=== PATIENT | female | born 1995 | race Caucasian/White ===

== ENCOUNTER → 2019-11-26 | Outpatient (CLI) | payer OTHER ==
--- NOTE | 2019-11-26 08:18 | REP ---
Obstetric sonography: History: Supervision of . Findings: Transabdominal scanning confirms the presence of a single living intrauterine gestation. Lehigh-rump length of the embryonic pole is 15 mm. This corresponds with a gestational age estimate of 7 weeks 5 days. heart rate is recorded at 155 beats per minute. No subchorionic hemorrhage is seen. No significant extrauterine abnormality. Impression: Viable single intrauterine gestation at 7 weeks 5 days by crown-rump length. FINA by sonography July 09, 2020. Electronically Signed by Brayan Hill MD 11/26/2019 10:57 A
== END ==
LOC: M RAD 06:39
PROVIDERS: ATTEND Physician Assistant
DX: Z34.01 Encounter for supervision of normal first pregnancy, first trimester (principal); Z3A.01 Less than 8 weeks gestation of pregnancy

== ENCOUNTER 2020-04-18 09:22 | Inpatient (IN) | payer OTHER ==
[~2020-04-18] VITALS: Ht 170.2 cm; Wt 71.9 kg
[2020-04-18] MEDS ORDERED: NS 1,000 ML IV ONE (09:45)
[2020-04-18] MEDS ORDERED: ISOVUE-370 76% 100ML VIAL As Ordered ONE (09:50)
[2020-04-18 10:13] LABS: BASO % 0.2 % (0.0-1.0); EOS % 0.1 % (0.0-3.0); HEMATOCRIT 27.8 % (36.0-47.0); HEMOGLOBIN 8.2 g/dl (12.0-15.5); LYMPH # 1.5 10^3/uL (1.5-5.0); LYMPH % 13.4 % (24.0-44.0); MEAN CORPUSCULAR HGB CONC 29.5 g/dl (32.0-36.5); MEAN CORPUSCULAR VOLUME 67.6 fl (80.0-96.0); MONO # 0.9 10^3/uL (0.0-0.8); NEUTROPHILS # 8.5 10^3/uL (1.5-8.5); NEUTROPHILS % 77.9 % (36.0-66.0); PLATELET COUNT, AUTOMATED 419 10^3/uL (150-450); RED BLOOD COUNT 4.11 10^6/uL (4.00-5.40); WHITE BLOOD COUNT 10.9 10^3/uL (4.0-10.0)
[2020-04-18 10:46] LABS: ALBUMIN 4.1 GM/DL (3.2-5.2); ALT/SGPT 26 U/L (12-78); BILIRUBIN,DIRECT 0.2 MG/DL (0.0-0.2); BILIRUBIN,TOTAL 0.6 MG/DL (0.2-1.0); CK-MB VALUE MASS 4.2 NG/ML (<3.6); CPK CREATINE PHOSPHOKINASE 288 U/L (26-192); LIPASE 72 U/L (73-393); MB/CK RELATIVE INDEX 1.46 (< OR =4); TOTAL PROTEIN 7.7 GM/DL (6.4-8.2); TROPONIN I < 0.02 NG/ML (< 0.10)
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
--- NOTE | 2020-04-18 11:06 | REP ---
CT CHEST WITH IV CONTRAST: TECHNIQUE: Axial contrast-enhanced images from the thoracic inlet to the upper abdomen using 100 mL Isovue-370 intravenous contrast material with multiplanar reformations. There is a very small right pneumothorax. There is a fracture of the right 1st rib. No other fracture seen of the visualized osseous structures. Lungs are otherwise clear. There is no pleural or pericardial effusion. There is no mediastinal, hilar, or chest wall lymphadenopathy. Normal thymic tissue is seen in the anterior mediastinum. There appears to be a small amount of fluid in the adjacent pericardial recess. Thoracic aorta is intact with no pseudoaneurysm. IMPRESSION: Very small right pneumothorax. Fracture right 1st rib. No other fracture of the visualized osseous structures. Thoracic aorta is intact. No pleural effusion. Electronically Signed by Desean Landa MD 04/22/2020 06:25 P
--- NOTE | 2020-04-18 11:18 | REP ---
CHEST: REASON: Trauma. COMPARISON: No priors. The technique utilized in obtaining the radiograph has magnified the cardiac silhouette and accentuated the interstitial markings. FINDINGS: The superior mediastinal structures are midline. The cardiac silhouette is unremarkable in size, shape, and position. The diaphragmatic surfaces of the lungs are regular, and the costophrenic angles are clear. The pulmonary ramos are clear. The imaged osseous structures are intact. IMPRESSION: There is no acute cardiopulmonary disease. Electronically Signed by Azeem Vidales DO 04/18/2020 02:46 P
--- NOTE | 2020-04-18 11:18 | REP ---
CT ABDOMEN AND PELVIS WITH IV CONTRAST: Liver, spleen, adrenals, pancreas and kidneys are normal in appearance. There is no adenopathy. There is no free air or free fluid. The abdominal aorta is normal in caliber and intact. No bowel wall thickening is seen. The appendix is normal. No pelvic mass is seen. Urinary bladder is mildly distended and grossly unremarkable. Visualized osseous structures are intact with no fracture. IMPRESSION: Negative abdomen and pelvis with no acute abnormality is identified. Electronically Signed by Desean Landa MD 04/22/2020 06:27 P
--- NOTE | 2020-04-18 11:21 | REP ---
LEFT FOOT, FOUR VIEWS: Four views, left foot performed. There is a nondisplaced fracture of the head of the 2nd metatarsal. I see no other evidence of acute fracture, dislocation, or intrinsic bone disease. There appears to be an old avulsion fracture of the lateral malleolus. There is an accessory ossicle adjacent to the navicular bone. IMPRESSION: Nondisplaced fracture head of 2nd metatarsal. Electronically Signed by Desean Landa MD 04/22/2020 06:27 P
[2020-04-18] MEDS ORDERED: MOM 30ML SUSPENSION UDC PO PRN (12:15)
[2020-04-18] MEDS ORDERED: MAALOX 30 ML SUSP *UDC PO PRN (12:15)
[2020-04-18] MEDS ORDERED: traMADol ER 100MG TABLET (ULTRAM ER) PO PRN (12:15)
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
[2020-04-18 12:27] LABS: AMPHETAMINES LEVEL URINE NEGATIVE (NEGATIVE); BARBITURATES URINE NEGATIVE (NEGATIVE); BENZODIAZEPINES URINE NEGATIVE (NEGATIVE); CANNABINOIDS URINE NEGATIVE (NEGATIVE); COCAINE METABOLITE URINE NEGATIVE (NEGATIVE); METHADONE URINE NEGATIVE (NEGATIVE); OPIATES URINE NEGATIVE (NEGATIVE); PHENCYCLIDINE URINE NEGATIVE (NEGATIVE)
[2020-04-18 12:40] LABS: ACETAMINOPHEN LEVEL < 2.0 UG/ML (10.0-30.0); SALICYLATE LEVEL < 1.7 MG/DL (5.0-30.0)
[2020-04-18] MEDS: ACETAMINOPHEN TAB 650MG DOSE (2X325MG) PO SCH ×3 (13:00→21:00)
[2020-04-18 13:11] LABS: FERRITIN 3 NG/ML (8-252); IRON (FE) 12 UG/DL (50-170); PERCENT SATURATION 2.1 % (13.2-45.0); TOTAL IRON BINDING CAPACITY 571 UG/DL (250-450)
[2020-04-18 13:15] VITALS: BP 124/70
[2020-04-18 13:18] LABS: FOLATE 6.7 NG/ML (>5.4); VITAMIN B12 LEVEL 726 PG/ML (247-911)
[2020-04-18 13:44] LABS: HEMATOCRIT 27.1 % (36.0-47.0)
[2020-04-18] MEDS: NS 1,000 ML IV SCH ×2 (14:09→22:30)
[2020-04-18] MEDS: IBUPROFEN 600MG TAB PO SCH ×2 (14:12→22:00)
--- NOTE | 2020-04-18 15:58 | ECGEPIP ---
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
[2020-04-18] MEDS ORDERED: ENOXAPARIN 40MG/0.4ML SYRINGE (J1650 PER 10MG) SC SCH (21:00)
[2020-04-18 22:00] VITALS: BP 119/67
[2020-04-19] MEDS: ACETAMINOPHEN TAB 650MG DOSE (2X325MG) PO SCH ×6 (01:00→20:28)
[2020-04-19 06:00] VITALS: BP 141/76
[2020-04-19] MEDS: IBUPROFEN 600MG TAB PO SCH ×3 (06:00→22:00)
[2020-04-19] MEDS: NS 1,000 ML IV SCH (06:21)
[2020-04-19 07:07] LABS: HEMATOCRIT 23.7 % (36.0-47.0); MEAN CORPUSCULAR HEMOGLOBIN 19.9 pg (27.0-33.0); MEAN CORPUSCULAR HGB CONC 29.1 g/dl (32.0-36.5); MEAN CORPUSCULAR VOLUME 68.5 fl (80.0-96.0); RED BLOOD COUNT 3.46 10^6/uL (4.00-5.40); WHITE BLOOD COUNT 5.4 10^3/uL (4.0-10.0)
[2020-04-19 07:12] LABS: HEMOGLOBIN 6.9 g/dl (12.0-15.5); PLATELET COUNT, AUTOMATED 311 10^3/uL (150-450)
[2020-04-19 07:28] LABS: BLOOD UREA NITROGEN 5 MG/DL (7-18); CALCIUM LEVEL 7.6 MG/DL (8.5-10.1); CARBON DIOXIDE LEVEL 24 MEQ/L (21-32); CHLORIDE LEVEL 114 MEQ/L (98-107); CPK CREATINE PHOSPHOKINASE 259 U/L (26-192); CREATININE FOR GFR 0.56 MG/DL (0.55-1.30); GLOMERULAR FILTRATION RATE > 60.0 (>60); GLUCOSE, FASTING 82 MG/DL (70-100); POTASSIUM SERUM 3.7 MEQ/L (3.5-5.1); SODIUM LEVEL 144 MEQ/L (136-145)
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
[2020-04-19 10:00] VITALS: BP 110/65
[2020-04-19 10:05] LABS: HEMATOCRIT 25.2 % (36.0-47.0); HEMOGLOBIN 7.2 g/dl (12.0-15.5)
--- NOTE | 2020-04-19 12:26 | IPNPDOC ---
Subjective Date Seen The patient was seen on 04/19/20. Subjective Chief Complaint/HPI Patient offers no new complaints at the present time. No shortness of breath General: Denies: ROS Unobtainable, Chills, Night Sweats, Fatigue, Malaise, Normal Appetite, Other Symptoms Constitutional: Denies: Chills, Fever, Malaise, Night Sweats, Weakness, Fatigue, Weight Loss, Lethargy, Other Eyes: Denies: Pain, Vision change, Conjunctivae inflammation, Eyelid inflammation, Redness, Other ENT: Denies: Head Aches, Ear Pain, Dysphagia, Sinus Congestion, Post Nasal Drip, Sore Throat, Epistaxis, Other Symptoms Skin: Denies: Rash, Lesions, Jaundice, Bruising, Itching, Dry, Breakdown, Nail Changes, Other Pulmonary: Denies: Dyspnea, Cough, Pleuritic Chest Pain, Other Symptoms Cardiovascular: Denies: Chest Pain, Palpitations, Orthopnea, Paroxysmal Noc. Dyspnea, Edema, Lt Headedness, Other Symptoms Gastrointestinal: Denies: Nausea, Vomiting, Abdominal Pain, Diarrhea, Constipation, Melena, Hematochezia, Other Symptoms Genitourinary: Denies: Dysuria, Frequency, Incontinence, Hematuria, Retention, Other Symptoms Hematologic: Denies: Bruising, Bleeding Excessively, Petecchia, Purpura, Enlarged Lymph Nodes, Other Hematologic Endocrine: Denies: Polydipsia, Polyphagia, Polyuria, Heat Intolerance, Cold Intolerance, Other Endocrine Sx Musculoskeletal: Denies: Neck Pain, Back Pain, Shoulder Pain, Arm Pain, Hand Pain, Leg Pain, Foot Pain, Joint Pain, Muscle Pain, Spasms, Other Symptoms Neurological: Denies: Weakness, Numbness, Incoordination, Change in speech, Confusion, Seizures, Other Symptoms Objective Physical Examination General Exam: Positive: Alert, Cooperative Eye Exam: Positive: PERRLA, Conjunctiva & lids normal ENT Exam: Positive: Atraumatic Neck Exam: Positive: Supple Chest Exam: Positive: Clear to auscultation, Normal air movement Heart Exam: Positive: Rate Normal, Normal S1, Normal S2 Abdomen Exam: Positive: Normal bowel sounds Extremity Exam: Positive: Normal pulses Skin Exam: Positive: Nl turgor and temperature, Breakdown Neuro Exam: Positive: Strength at 5/5 X4 ext, Sensation Intact, Cranial Nerves 3-12 NL Psych Exam: Positive: Mood NL, Oriented x 3 Assessment /Plan Problems (1) Suicide attempt Status: Acute Problem Text: Patient is clinically stable Will request inpatient mental health unit consult. Once she is medically clear, hopefully tomorrow Continue present care (2) Rib fracture Status: Acute Problem Text: Surgical consultation noted and appreciated Pain management as per orders (3) Pneumothorax Status: Acute Problem Text: Stable pneumothorax No need for chest tube placement as per surgical consult Repeat chest x-ray tonight and tomorrow morning If no increase in the pneumothorax and patient will be clear for discharge (4) Anemia Status: Chronic Problem Text: According to patient, she has a chronic anemia Her repeat hemoglobin 7.2, hematocrit 23.2 Will order CBC, CMP, and the iron deficiency workup tomorrow Will add ferrous sulfate 325 mg by mouth twice a day (5) Foot fracture Status: Acute Problem Text: IMAGING STUDIES: Foot x-ray shows nondisplaced fracture head of second metatarsal on the left. Orthopedic consult was called last night, awaiting official report Plan/VTE VTE Prophylaxis Ordered?: Yes VS, I&O, [facility] Vital Signs/I&O Vital Signs Date Time Temp Pulse Resp B/P (MAP) Pulse Ox O2 Delivery O2 Flow Rate FiO2 04/19/20 10:00 99.2 61 20 110/65 (80) 100 Room Air I&O- Last 24 Hours up to 6 AM 04/19/20 05:59 Intake Total 1440 ml Output Total 775 ml Balance 665 ml Laboratory Data 24H LABS Laboratory Tests 2 04/18/20 13:33: Vitamin B12 Level 639 04/19/20 06:45: Nucleated Red Blood Cells % (auto) 0.0, Anion Gap 6L, Glomerular Filtration Rate > 60.0, Calcium Level 7.6L, Total Creatine Kinase 259H CBC/BMP Laboratory Tests 04/18/20 13:33 04/19/20 06:45 04/19/20 09:52 MATT SMITH MD Apr 19, 2020 12:26
[2020-04-19 12:40] LABS: MAGNESIUM LEVEL 1.9 MG/DL (1.8-2.4)
[2020-04-19 14:00] VITALS: BP 114/64
--- NOTE | 2020-04-19 16:15 | REP ---
There to single view of chest studies available currently for dictation: 04/19/2020. Indication: Pneumothorax. Comparison: Chest x-ray dated 04/18/[address] as chest CT dated 04/18/2020. Findings: The small right apical pneumothorax is not appreciated on these plain films. There is no pleural effusion. The lungs are clear. Cardiac silhouette is normal. Impression: No significant residual pneumothorax within the right apex appreciated. Electronically Signed by Dexter Kaiser DO 04/19/2020 04:06 P
[2020-04-19] MEDS: FERROUS SULFATE 325MG TAB PO SCH (20:28)
[2020-04-19 22:00] VITALS: BP 118/87
[2020-04-20] VITALS (10 sets, daily range): BP systolic 106–120; BP diastolic 57–67
[2020-04-20] MEDS: ACETAMINOPHEN TAB 650MG DOSE (2X325MG) PO SCH ×6 (01:00→21:45)
[2020-04-20] MEDS: IBUPROFEN 600MG TAB PO SCH ×3 (06:00→21:44)
[2020-04-20 07:01] LABS: BASO % 0.3 % (0.0-1.0); EOS # 0.1 10^3/uL (0.0-0.5); EOS % 1.6 % (0.0-3.0); HEMATOCRIT 24.2 % (36.0-47.0); LYMPH # 2.5 10^3/uL (1.5-5.0); LYMPH % 43.1 % (24.0-44.0); MEAN CORPUSCULAR HEMOGLOBIN 19.7 pg (27.0-33.0); MEAN CORPUSCULAR HGB CONC 28.9 g/dl (32.0-36.5); MEAN CORPUSCULAR VOLUME 68.2 fl (80.0-96.0); MONO # 0.5 10^3/uL (0.0-0.8); MONO % 8.3 % (0.0-5.0); NEUTROPHILS # 2.7 10^3/uL (1.5-8.5); NEUTROPHILS % 46.4 % (36.0-66.0); PLATELET COUNT, AUTOMATED 350 10^3/uL (150-450); RED BLOOD COUNT 3.55 10^6/uL (4.00-5.40); WHITE BLOOD COUNT 5.8 10^3/uL (4.0-10.0)
[2020-04-20 07:41] LABS: ALBUMIN 3.2 GM/DL (3.2-5.2); ALT/SGPT 17 U/L (12-78); BILIRUBIN,TOTAL 0.6 MG/DL (0.2-1.0); BLOOD UREA NITROGEN 4 MG/DL (7-18); CARBON DIOXIDE LEVEL 25 MEQ/L (21-32); CHLORIDE LEVEL 112 MEQ/L (98-107); CREATININE FOR GFR 0.61 MG/DL (0.55-1.30); FERRITIN 6 NG/ML (8-252); GLOMERULAR FILTRATION RATE > 60.0 (>60); GLUCOSE, FASTING 79 MG/DL (70-100); IRON (FE) 12 UG/DL (50-170); PERCENT SATURATION 2.8 % (13.2-45.0); POTASSIUM SERUM 3.7 MEQ/L (3.5-5.1); SODIUM LEVEL 145 MEQ/L (136-145); T UPTAKE 31 % (30-39); THYROXINE (T4) 6.5 UG/DL (4.5-12.0); TOTAL IRON BINDING CAPACITY 428 UG/DL (250-450); TOTAL PROTEIN 6.2 GM/DL (6.4-8.2)
[2020-04-20] MEDS: FERROUS SULFATE 325MG TAB PO SCH ×2 (08:24→21:44)
--- NOTE | 2020-04-20 10:12 | IPNPDOC ---
Subjective Date Seen The patient was seen on 04/20/20. Subjective Chief Complaint/HPI According to patient, she had a large amount of vaginal bleeding secondary to menses, but offers no complains of a abdominal pain, nausea, vomiting, etc. General: Denies: ROS Unobtainable, Chills, Night Sweats, Fatigue, Malaise, Normal Appetite, Other Symptoms Constitutional: Denies: Chills, Fever, Malaise, Night Sweats, Weakness, Fatigue, Weight Loss, Lethargy, Other Pulmonary: Denies: Dyspnea, Cough, Pleuritic Chest Pain, Other Symptoms Cardiovascular: Denies: Chest Pain, Palpitations, Orthopnea, Paroxysmal Noc. Dyspnea, Edema, Lt Headedness, Other Symptoms Gastrointestinal: Denies: Nausea, Vomiting, Abdominal Pain, Diarrhea, Constipation, Melena, Hematochezia, Other Symptoms Musculoskeletal: Denies: Neck Pain, Back Pain, Shoulder Pain, Arm Pain, Hand Pain, Leg Pain, Foot Pain, Joint Pain, Muscle Pain, Spasms, Other Symptoms Neurological: Denies: Weakness, Numbness, Incoordination, Change in speech, Confusion, Seizures, Other Symptoms Objective Physical Examination General Exam: Positive: Alert, Cooperative Neck Exam: Positive: Supple Chest Exam: Positive: Clear to auscultation, Normal air movement Heart Exam: Positive: Rate Normal, Normal S1, Normal S2 Abdomen Exam: Positive: Normal bowel sounds Extremity Exam: Positive: Normal pulses Skin Exam: Positive: Nl turgor and temperature, Breakdown Assessment /Plan Problems (1) Suicide attempt Status: Acute Problem Text: Patient is clinically stable Will request inpatient mental health unit consult. Once she is medically clear, hopefully tomorrow Continue present care (2) Rib fracture Status: Acute Problem Text: Surgical consultation noted and appreciated Pain management as per orders (3) Pneumothorax Status: Acute Problem Text: Stable pneumothorax No need for chest tube placement as per surgical consult Repeat chest x-ray does not show any residual pneumothorax (4) Anemia Status: Chronic Problem Text: Patient seemed to have a chronic severe anemia of unknown etiology Her hemoglobin still remains low, her hemoglobin today is 7, a hematocrit 24.2 I will transfuse her -2 units of PRBC to elevate her hemoglobin level which will help with her physical functioning and improve her symptoms are tiredness and fatigue Further anemia workup including iron studies, and electrophoresis has been ordered In the meantime, patient has been started on iron and supplemented along with vitamin C and folic acid supplements If patient is clinically stable. I will call psychiatry tomorrow and get a possibly transfer to inpatient mental health unit (5) Foot fracture Status: Acute Problem Text: IMAGING STUDIES: Foot x-ray shows nondisplaced fracture head of second metatarsal on the left. Patient was seen by orthopedic no surgical intervention recommended and has been asked to follow-up as an outpatient We'll try to arrange a podiatry boot before she is discharged to inpatient mental health unit Plan/VTE VTE Prophylaxis Ordered?: Yes VS, I&O, 24H, Fishbone Vital Signs/I&O Vital Signs Date Time Temp Pulse Resp B/P (MAP) Pulse Ox O2 Delivery O2 Flow Rate FiO2 04/20/20 06:00 98.5 60 18 112/57 (75) 100 Room Air I&O- Last 24 Hours up to 6 AM 04/20/20 05:59 Intake Total 1440 ml Output Total 1500 ml Balance -60 ml Laboratory Data 24H LABS Laboratory Tests 2 04/20/20 06:17: Immature Granulocyte % (Auto) 0.3, Neutrophils (%) (Auto) 46.4, Lymphocytes (%) (Auto) 43.1, Monocytes (%) (Auto) 8.3H, Eosinophils (%) (Auto) 1.6, Basophils (%) (Auto) 0.3, Neutrophils # (Auto) 2.7, Lymphocytes # (Auto) 2.5, Monocytes # (Auto) 0.5, Eosinophils # (Auto) 0.1, Basophils # (Auto) 0.0, Nucleated Red Blood Cells % (auto) 0.0, Anion Gap 8, Glomerular Filtration Rate > 60.0, Calcium Level 8.0L, Iron Level 12L, Total Iron Binding Capacity 428, Transferrin % Saturation 2.8L, Ferritin 6L, Total Bilirubin 0.6, Aspartate Amino Transf (AST/SGOT) 15, Alanine Aminotransferase (ALT/SGPT) 17, Alkaline Phosphatase 49, Total Protein 6.2L, Albumin 3.2#, Albumin/Globulin Ratio 1.1L, Thyroid Stimulating Hormone (TSH) 2.030, Free Thyroxine Index 2.0, Thyroxine (T4) 6.5, Triiodothyronine (T3) Uptake 31 CBC/BMP Laboratory Tests 04/20/20 06:17 MATT SMITH MD Apr 20, 2020:12
[2020-04-20] MEDS: FOLIC ACID 1 MG TAB PO SCH (10:30)
[2020-04-20] MEDS: ASCORBIC ACID 500 MG TAB PO SCH ×2 (10:30→21:44)
[2020-04-21] MEDS: ACETAMINOPHEN TAB 650MG DOSE (2X325MG) PO SCH ×6 (01:00→21:20)
[2020-04-21 05:30] VITALS: BP 118/65
[2020-04-21] MEDS: IBUPROFEN 600MG TAB PO SCH ×3 (05:45→21:21)
[2020-04-21 06:22] LABS: BASO % 0.3 % (0.0-1.0); EOS # 0.1 10^3/uL (0.0-0.5); EOS % 1.5 % (0.0-3.0); HEMATOCRIT 31.7 % (36.0-47.0); LYMPH % 49.4 % (24.0-44.0); MEAN CORPUSCULAR HEMOGLOBIN 21.4 pg (27.0-33.0); MEAN CORPUSCULAR VOLUME 71.4 fl (80.0-96.0); MONO # 0.5 10^3/uL (0.0-0.8); MONO % 7.3 % (0.0-5.0); NEUTROPHILS # 2.5 10^3/uL (1.5-8.5); NEUTROPHILS % 41.3 % (36.0-66.0); PLATELET COUNT, AUTOMATED 350 10^3/uL (150-450); RED BLOOD COUNT 4.44 10^6/uL (4.00-5.40); WHITE BLOOD COUNT 6.2 10^3/uL (4.0-10.0)
[2020-04-21 06:29] LABS: HEMOGLOBIN 9.5 g/dl (12.0-15.5)
[2020-04-21 06:50] LABS: ALBUMIN 3.5 GM/DL (3.2-5.2); ALT/SGPT 20 U/L (12-78); BILIRUBIN,TOTAL 1.1 MG/DL (0.2-1.0); BLOOD UREA NITROGEN 5 MG/DL (7-18); CALCIUM LEVEL 8.8 MG/DL (8.5-10.1); CARBON DIOXIDE LEVEL 26 MEQ/L (21-32); CHLORIDE LEVEL 110 MEQ/L (98-107); CREATININE FOR GFR 0.66 MG/DL (0.55-1.30); GLOMERULAR FILTRATION RATE > 60.0 (>60); GLUCOSE, FASTING 81 MG/DL (70-100); POTASSIUM SERUM 3.6 MEQ/L (3.5-5.1); SODIUM LEVEL 144 MEQ/L (136-145); TOTAL PROTEIN 6.9 GM/DL (6.4-8.2)
--- NOTE | 2020-04-21 09:12 | CR ---
DATE OF CONSULTATION: 04/19/2020 INDICATION: Left metatarsal fracture. HISTORY OF PRESENT ILLNESS: Citlali is a pleasant 24-year-old female that apparently attempted suicide jumping out of a third story apartment building. Her only orthopedic injury was a displaced left second metatarsal head fracture. She was admitted to the hospitalist service with modified trauma protocol and a plan of going over to the mental health unit once medically cleared. The patient is reporting mild pain in her left foot. It is 4/10 on the pain scale. Described as throbbing. Improved with elevation and made worse with any attempt at weightbearing. She denies numbness or tingling in her left foot. She has already been provided with a postoperative shoe. For the patient's full past medical history, past surgical history, medications, allergies, social history and review of systems, please see admitting history and physical, which I have personally reviewed. PHYSICAL EXAMINATION: Reveals well-appearing female in no distress. She is alert and oriented x3. Neurologic: Appropriate mood and affect. She answers questions appropriately. We did not get into any questions about suicidal ideation. Pulmonary: Nonlabored breathing. Cardiovascular: 2+ dorsalis pedis (DP) pulse. Abdomen is non distended. Musculoskeletal: There is mild swelling in the left midfoot and forefoot. No significant bruising. Her ankle and calcaneus are nontender. She essentially has fairly estimated tenderness to the second MTP joint. TMT joints are nontender. She can fire EHL and FHL. Sensation light touch is grossly intact. X-rays of the left foot, three views, were obtained in the ER and available for my review. There is a very mildly displaced fracture of the second metatarsal head. No widening at the Lisfranc joint. ASSESSMENT/PLAN: Citlali has a mildly displaced left second metatarsal head fracture. I recommend heel weightbearing in this postoperative shoe. I do recommend she be transitioned to a full on short walking boot when able. I stressed the importance of not weightbearing through the mid and forefoot and she cannot properly execute heel weightbearing and she will have to be non weightbearing until she gets the boot. She should be very well with this unless she is putting weight on it or falls. Then there could be a shift at the fracture site which could change this to a surgical condition. I carefully explained that to her and she understands. I recommend she take vitamin D 2000 units daily for 2 months. At this point, we would be happy to see her at the orthopedic clinic in a week. 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 All of her questions were answered. She agrees with the plan.
[2020-04-21] MEDS: FOLIC ACID 1 MG TAB PO SCH (09:38)
[2020-04-21] MEDS: FERROUS SULFATE 325MG TAB PO SCH ×2 (09:39→21:21)
[2020-04-21] MEDS: ASCORBIC ACID 500 MG TAB PO SCH ×2 (09:39→21:21)
--- NOTE | 2020-04-21 10:28 | MHCRPDOC ---
[facility] Consultation Consultation DATE OF CONSULTATION: 04/21/20 patient seen, audio quality poor, patient jumped out window (reports she fell during arugment) concerns warrant further evaluation to determine if any MH problems at play, admit to critical access hospital Vital Signs Vital Signs Date Time Temp Pulse Resp B/P (MAP) Pulse Ox O2 Delivery O2 Flow Rate FiO2 04/21/20 05:30 98.1 51 16 118/65 (82) 99 Room Air Laboratory Data 24H Labs Laboratory Tests 2 04/21/20 06:11: Immature Granulocyte % (Auto) 0.2, Neutrophils (%) (Auto) 41.3, Lymphocytes (%) (Auto) 49.4H, Monocytes (%) (Auto) 7.3H, Eosinophils (%) (Auto) 1.5, Basophils ( %) (Auto) 0.3, Neutrophils # (Auto) 2.5, Lymphocytes # (Auto) 3.0, Monocytes # (Auto) 0.5, Eosinophils # (Auto) 0.1, Basophils # (Auto) 0.0, Nucleated Red Blood Cells % (auto) 0.0, Anion Gap 8, Glomerular Filtration Rate > 60.0, Calcium Level 8.8, Total Bilirubin 1.1#H, Aspartate Amino Transf (AST/SGOT) 15, Alanine Aminotransferase (ALT/SGPT) 20, Alkaline Phosphatase 54, Total Protein 6.9, Albumin 3.5, Albumin/Globulin Ratio 1.0L Home Medications Current Medications Current Medications Medications (Trade) Dose Ordered Sig/Chaitanya Route PRN Reason Start Time Stop Time Status Last Admin Dose Admin Acetaminophen (Tylenol Tab) 650 mg Q4H PO 04/18/20 13:00 04/21/20 09:39 Al Hydrox/Mg Hydrox/Simethicone (Mylanta) 30 ml DAILY PRN PO DYSPEPSIA 04/18/20 12:15 Ascorbic Acid (Vitamin C) 500 mg BID PO 04/20/20 09:00 04/21/20 09:39 Enoxaparin Sodium (Lovenox) 40 mg DAILY@2100 SC 04/18/20 21:00 04/18/20 12:24 DC Ferrous Sulfate (Ferrous Sulfate) 325 mg BID PO 04/19/20 21:00 04/21/20 09:39 Folic Acid (Folic Acid) 1 mg DAILY PO 04/20/20 09:00 04/21/20 09:38 Home Med (Med Rec Complete!) ASDIRECTED XX 04/18/20 12:00 04/18/20 11:48 DC Ibuprofen (Advil) 600 mg Q8H PO 04/18/20 14:00 04/21/20 05:45 Magnesium Hydroxide (Milk Of Magnesia) 30 ml DAILY PRN PO CONSTIPATION 04/18/20 12:15 Sodium Chloride 1,000 ml @ 100 mls/hr Q10H IV 04/18/20 12:30 04/19/20 09:34 DC 04/19/20 06:21 Tramadol HCl (Ultram Er) 200 mg DAILY PRN PO break through pain 04/18/20 12:15 Scheduled Acetaminophen (Acetaminophen) 325 Mg Tablet, 650 MG PO Q4H Ascorbic Acid (Vitamin C) 500 Mg Tablet, 500 MG PO BID Disulfiram (Disulfiram) 250 Mg Tablet, 1 TAB PO DAILY for alcohol Ferrous Sulfate (Ferrous Sulfate) 325 Mg Tablet, 325 MG PO BID Folic Acid (Folic Acid) 1 Mg Tablet, 1 MG PO DAILY Ibuprofen (Ibuprofen) 600 Mg Tablet, 600 MG PO Q8H Scheduled PRN Aluminum/Magnesium/Simeth (Mag-Al Plus Suspension) 30 Ml Oral.susp, 30 ML PO DAILY PRN for DYSPEPSIA Magnesium Hydroxide (Milk of Magnesia) 400 Mg/5 Ml Oral.susp, 30 ML PO DAILY PRN for CONSTIPATION Allergies Coded Allergies: No Known Allergies (Unverified , 04/18/20) AKANKSHA TENORIO DO Apr 21, 2020 10:28
--- NOTE | 2020-04-21 11:27 | DS.PDOC ---
Discharge Summary General Date of Admission Apr 18, 2020 at 12:03 Date of Discharge 04/21/20 Discharge Summary PROCEDURES PERFORMED DURING STAY: None. ADMITTING DIAGNOSES: 1. Suicidal attempt, foot fracture. DISCHARGE DIAGNOSES: 1. Suicidal attempt, pneumothorax, foot fracture, significant chronic anemia of unknown etiology. COMPLICATIONS/CHIEF COMPLAINT: Foot Fracture. 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 Later on, the ER doctor went back with a social media editor to talk to the patient again and she admitted to jumping out of her window after having an argument with her boyfriend. As a result of the fall she sustained injuries to her chest, resulting in a rib fracture and small pneumothorax. She also developed a left second metatarsal nondisplaced fracture. Both Drs. Larson and Justyna have been consulted.. HOSPITAL COURSE: (1) Suicide attempt Patient jumped out of the third floor of building sustaining injuries to her left foot Patient is clinically stable now [facility] consult was requested, once she is accepted, she'll be discharged to inpatient mental health unit today Psychiatric medication and intervention as per his psych (2) Rib fracture Surgical consult was called. No further intervention was recommended When necessary pain management orders with nonnarcotic meds (3) Pneumothorax Patient sustained a very small pneumothorax with rib fracture Which has completely resolved now. We'll repeat chest x-ray does not show any evidence of pneumothorax No further intervention was recommended from orthopedic (4) Anemia: Chronic in nature, of unknown etiology Patient seemed to have a chronic severe anemia of unknown etiology Her hemoglobin still remains low, her hemoglobin today is 7, a hematocrit 24.2 Patient was transfused 2 units of PRBC yesterday with a hemoglobin 9.5, a hematocrit 31.7 today Patient clinically feeling much better and energized after the transfusion and is in good spirits as well Further anemia workup including iron studies, and electrophoresis has been ordered In the meantime, patient has been started on iron and supplemented along with vitamin C and folic acid supplements Once the patient is transferred to inpatient mental health unit, will follow the patient for pending laboratory work (5) Foot fracture IMAGING STUDIES: Foot x-ray shows nondisplaced fracture head of second metatarsal on the left. Patient was seen by orthopedic no surgical intervention recommended and has been asked to follow-up as an outpatient We'll try to arrange a podiatry boot before she is discharged to inpatient mental health unit. DISCHARGE MEDICATIONS: Please see below. ALLERGIES: Please see below. PHYSICAL EXAMINATION ON DISCHARGE: VITAL SIGNS: Please see below. GENERAL: Within normal limits HEENT: PERRLA. Extraocular muscles intact NECK: Supple. Negative JVD, negative lymphadenopathy CARDIOVASCULAR EXAMINATION: S1, S2, regular RESPIRATORY EXAMINATION: Clear to A&P ABDOMINAL EXAMINATION: Benign EXTREMITIES: No clubbing, cyanosis, edema SKIN: Normal NEUROLOGICAL EXAMINATION: . No focal motor sensory deficit PSYCHIATRIC EXAMINATION: Normal LABORATORY DATA: Please see below. IMAGING: Chest x-ray:Impression: No significant residual pneumothorax within the right apex appreciated. PROGNOSIS: Good ACTIVITY: As tolerated. DIET: As tolerated DISCHARGE PLAN: Discharged inpatient mental health unit DISPOSITION: . Discharged to inpatient mental health unit DISCHARGE INSTRUCTIONS: 1. As per discharge instructions. ITEMS TO FOLLOWUP ON ON OUTPATIENT: 1. Follow with psych. DISCHARGE CONDITION: Stable. TIME SPENT ON DISCHARGE: 35 minutes. Vital Signs/I&Os Vital Signs Date Time Temp Pulse Resp B/P (MAP) Pulse Ox O2 Delivery O2 Flow Rate FiO2 04/21/20 05:30 98.1 51 16 118/65 (82) 99 Room Air I&O- Last 24 Hours up to 6 AM 04/21/20 05:59 Intake Total 2070 ml Output Total 400 ml Balance 1670 ml Laboratory Data Labs 24H Laboratory Tests 2 04/21/20 06:11: Immature Granulocyte % (Auto) 0.2, Neutrophils (%) (Auto) 41.3, Lymphocytes (%) (Auto) 49.4H, Monocytes (%) (Auto) 7.3H, Eosinophils (%) (Auto) 1.5, Basophils (%) (Auto) 0.3, Neutrophils # (Auto) 2.5, Lymphocytes # (Auto) 3.0, Monocytes # (Auto) 0.5, Eosinophils # (Auto) 0.1, Basophils # (Auto) 0.0, Nucleated Red Blood Cells % (auto) 0.0, Anion Gap 8, Glomerular Filtration Rate > 60.0, Calcium Level 8.8, Total Bilirubin 1.1#H, Aspartate Amino Transf (AST/SGOT) 15, Alanine Aminotransferase (ALT/SGPT) 20, Alkaline Phosphatase 54, Total Protein 6.9, Albumin 3.5, Albumin/Globulin Ratio 1.0L CBC/BMP Laboratory Tests 04/21/20 06:11 Discharge Medications No Active Prescriptions or Reported Meds Allergies Coded Allergies: No Known Allergies (Unverified , 04/18/20) MATT SMITH MD Apr 21, 2020 11:27
[2020-04-21] MEDS ORDERED: FERR325T18 PO (13:40)
[2020-04-21] MEDS ORDERED: TRAM100T21 PO (13:40)
[2020-04-21] MEDS ORDERED: MYLASSUD PO (13:40)
[2020-04-21] MEDS ORDERED: MOM30SS2 PO (13:40)
[2020-04-21] MEDS ORDERED: ACET1TAB55 PO (13:40)
[2020-04-21] MEDS ORDERED: IBUP-1022 PO (13:40)
[2020-04-21] MEDS ORDERED: ASCO50TA PO (13:40)
[2020-04-21] MEDS ORDERED: FOLI1TAB11 PO (13:40)
[2020-04-21 14:00] VITALS: BP 118/66
[2020-04-21 20:28] VITALS: BP 112/69
[2020-04-22] MEDS: ACETAMINOPHEN TAB 650MG DOSE (2X325MG) PO SCH (01:00)
[2020-04-23] MEDS ORDERED: DISU250T PO (10:26)
[2020-04-23 17:08] LABS: HEMOGLOBIN A 98.1 % (96.4-98.8); HEMOGLOBIN A2 1.9 % (1.8-3.2); HGB SOLUBILITY Negative (Negative)
== END 2020-04-22 02:40 | disposition home or self-care (01) | DRG 563 ==
LOC: M ED 09:22 → M ED INP 12:03 → ENRESERV 12:37 → M MS5PR 13:25
PROVIDERS: ADMIT Internal Medicine; ATTEND Internal Medicine
DX: S92.322A Displaced fracture of second metatarsal bone, left foot, initial encounter for closed fracture (principal); R45.851 Suicidal ideations; S22.31XA Fracture of one rib, right side, initial encounter for closed fracture; S27.0XXA Traumatic pneumothorax, initial encounter; D64.9 Anemia, unspecified; W13.4XXA Fall from, out of or through window, initial encounter; Y92.009 Unspecified place in unspecified non-institutional (private) residence as the place of occurrence of the external cause

== ENCOUNTER 2020-04-21 23:10 | Inpatient (IN) | payer OTHER ==
[~2020-04-21] VITALS: Ht 170.2 cm; Wt 72.4 kg
[~2020-04-21 23:10] MED LIST: ACET1TAB55 PO; ASCO50TA PO; FERR325T18 PO; FOLI1TAB11 PO; IBUP-1022 PO; MOM30SS2 PO; MYLASSUD PO; TRAM100T21 PO
[2020-04-21] MEDS ORDERED: traZODone 50 MG TAB PO PRN (23:15)
[2020-04-21] MEDS ORDERED: ACETAMINOPHEN 325 MG TAB PO PRN (23:15)
[2020-04-21] MEDS ORDERED: ANALGESIC BALM CRM 120 GM TOP PRN (23:15)
[2020-04-21] MEDS ORDERED: MOM 30ML SUSPENSION UDC PO PRN (23:15)
[2020-04-21] MEDS ORDERED: MAALOX 30 ML SUSP *UDC PO PRN (23:15)
[2020-04-22 02:34] VITALS: BP 109/75
[2020-04-22 06:00] VITALS: BP 122/68
[2020-04-22] MEDS ORDERED: ACETAMINOPHEN TAB 650MG DOSE (2X325MG) PO PRN (08:30)
[2020-04-22] MEDS ORDERED: ACETAMINOPHEN 325 MG TAB PO PRN (08:30)
--- NOTE | 2020-04-22 09:22 | MHHPEPDOC ---
[facility] Physical History and Physical DATE OF ADMISSION: Apr 22, 2020 at 02:23 Mode Godwin presents today for a follow up. She is still getting used to the facility environment. She was hospitalized due to drinking too much one night. She drank 2 bottles of wine when she got hospitalized. She reports she usually drinks 1 bottle. She denies having had any type of mental health treatment before. While she was drunk, she had threatened to take her life and jump. She ended up accidentally falling. She denies a history of hallucinations, trauma, or abuse. Regarding mood and anxiety, she feels that it is difficult to be at the facility. She continues to have problems with low mood. 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 She does not have a family history of mental illness. Objective Appearance: Well groomed. Well nourished. Affect: Appropriate to context. Full range. Cognition: Alert, Attentive, and Oriented to person, place, time. Thought Form: Linear and goal directed. Thought Content: No thoughts of self harm. No evidence of suicidal ideation. No evidence of delusions. No evidence of aggressive or homicidal ideation. Judgement: intact as evidenced by decision making in the recent past. Insight: good insight into symptoms and treatment options. 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 If patient is denying any suicidal or homicidal ideation, well need to discharge in good lonny that shes declined voluntary. Her risk factors are likely chronic at this point. Its likely that her current treatment would be best augment by substance use treatment and further ev aluation. However, she will not likely meet involuntary criteria as of tomorrow when her 48 hours extension period becomes relevant. Well speak to [facility] to determine if they prefer patient would have long-term treatment or other related treatment issues. ALLERGIES: Please see below. VITAL SIGNS: Please see below. INITIAL TREATMENT PLAN: 1. Patient was admitted on a 9.39 2. Complete history was obtained. 3. With patients permission, family will be contacted and database will be expanded. 4. Patients medication regimen will be reviewed and changed accordingly. 5. Patient will be provided with protected environment. 6. Patient will be treated with individual, group, and milieu therapies. 7. Patient will receive supportive psych-education. 8. Discharge planning will commence immediately. 9. Outpatient follow-up treatment will be strongly recommended. 10. The initial treatment plan will focus initially on: * Depression. * Risk for suicide. * Substance abuse. ESTIMATED LENGTH OF STAY: 1-2 DAYS. TIME SPENT COUNSELING AND COORDINATING INITIAL CARE: 20 minutes. Vital Signs Vital Signs Date Time Temp Pulse Resp B/P (MAP) Pulse Ox O2 Delivery O2 Flow Rate FiO2 04/22/20 06:00 97.6 54 14 122/68 (86) 100 Room Air Medications Scheduled Acetaminophen (Acetaminophen) 325 Mg Tablet, 650 MG PO Q4H Ascorbic Acid (Vitamin C) 500 Mg Tablet, 500 MG PO BID Ferrous Sulfate (Ferrous Sulfate) 325 Mg Tablet, 325 MG PO BID Folic Acid (Folic Acid) 1 Mg Tablet, 1 MG PO DAILY Ibuprofen (Ibuprofen) 600 Mg Tablet, 600 MG PO Q8H Scheduled PRN Aluminum/Magnesium/Simeth (Mag-Al Plus Suspension) 30 Ml Oral.susp, 30 ML PO DAILY PRN for DYSPEPSIA Magnesium Hydroxide (Milk of Magnesia) 400 Mg/5 Ml Oral.susp, 30 ML PO DAILY PRN for CONSTIPATION Allergies Coded Allergies: No Known Allergies (Unverified , 04/18/20) A-FIB/CHADSVASC A-FIB History Current/History of A-Fib/PAF?: No AKANKSHA TENORIO DO Apr 22, 2020 09:22
[2020-04-22] MEDS ORDERED: MIRALAX *UNIT DOSE* 17GM PACKET PO PRN (14:30)
--- NOTE | 2020-04-22 14:30 | HPEPDOC ---
[facility] Medical History & Physical Date of Admission Apr 22, 2020 Date of Service: Apr 22, 2020 Attending Physician: Kandi Solomon MD History and Physical HISTORY OF PRESENT ILLNESS: Patient is a 24-year-old female with past medical history of anemia who was admitted on to [facility] after jumping from a third floor window and sustaining several fractures secondary to trauma. The patient admitted to jumping out of her window after having our unit with her boyfriend. She stated that she has been feeling down since December 2019 after having to have in . She admits to feeling depressed at times, being very tearful. She states she is also had decreased pleasure in things that she would normally take pleasure in. She denies hopelessness. During her admission to the hospital she sustained a small right sided pneumothorax secondary to the trauma which later resolved on its own. She also had a right first rib fracture and left second metatarsal nondisplaced fracture both secondary to the trauma. She was followed by both surgery and orthopedic surgery and has been getting treated for this. She was assessed by psychiatry during that stay and was later admitted to the inpatient mental health unit on 04/21/2020 for unspecified depressive disorder. During my evaluation today, the patient denies feelings of hopelessness, homicidal ideation, suicidal ideation. She admits to some shortness of breath with deep inspiration but denies chest pains that are new. She denies fevers, chills, nausea, vomiting, cough. She stated that she jumped off of the roof more so to get attention from her boyfriend eventually try to kill herself. She stat es due to her being intoxicated that this heightened her feelings at the time but she would not include doing this sober. She has never had a plan to kill herself and has not attempted to kill herself in the past. When questioned about her anemia, the patient denies any increased bleeding with her menses which she states are normal. She was previously on an iron supplement but this was later stopped due to constipation. REVIEW OF SYSTEMS: CONSTITUTIONAL: Denies unexplained weight gain or weight loss, loss of appetite, fever, night sweats EYES: Denies eye drainage, eye pain, visual changes, dry/irritated eye EARS, NOSE, MOUTH, THROAT: Denies difficulty hearing, ringing in ears, mouth sores, loose teeth, sore throat, facial numbness or pain NECK: Denies swollen glands CARDIOVASCULAR: Denies irregular heartbeat, racing heart, chest pains, swelling of feet or legs, pain in legs with walking RESPIRATORY: Denies night sweats, wheezing, sputum production, oxygen at home, coughing up blood, cough lasting > 1 month GASTROINTESTINAL: Denies abdominal pain, constipation, bloody stool, diarrhea, heartburn, nausea, vomiting GENITOURINARY: Denies painful urination, bloody urine, frequent urination, urgency, leaking urine, impotence MUSCULOSKELETAL: Denies joint pain, muscle pain, leg swelling INTEGUMENTARY: Denies rash, itching, new skin lesion, change in existing skin lesion, hair loss or increase, breast changes. NEUROLOGICAL: Denies headaches, dizziness, difficulty walking, numbness or tingling PSYCHIATRIC: Denies recurrent bad thoughts, mood swings, hallucinations PAST MEDICAL HISTORY: 1. Iron deficiency anemia PAST SURGICAL HISTORY: 1. Termination of FAMILY HISTORY: Father: Unknown, alive Mother: HTN. Alive SOCIAL HISTORY: Denies smoking, drug use. Drinks alcohol socially. 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 ALLERGIES: Please see below. HOME MEDICATIONS: Please see below. PHYSICAL EXAMINATION: CONSTITUTIONAL: No acute distress, resting comfortably, AAO x 3 EYES: PERRLA, EOM intact, corrective lenses in place HENT, MOUTH: Normocephalic, atraumatic, moist mucous membranes NECK: SUPPLE, no JVD, no lymphadenopathy, no carotid bruit CV: Regular rate and rhythm, S1S2 normal, no murmurs/rubs/gallops CHEST: Pain to palpation of right side of chest RESPIRATORY: Clear to auscultation bilaterally, no rales/rhonchi/wheezes GI: BS positive in 4 quadrants, soft, nontender, nondistended, no rebound or guarding, no organomegaly : Deferred MUSCULOSKELETAL: Left lower ext boot in place, ROM not tested . No cyanosis, clubbing. Pulses present in all extremities INTEGUMENTARY: Intact, no rashes, no lesions, no erythema NEUROLOGIC: Cranial Nerves II-XII are intact, no focal deficits PSYCHIATRIC: Mood and affect are normal LABORATORY DATA: Please see below IMAGING: No new imaging. ASSESSMENT: 24 y/o F admitted to inpatient mental health unit for unspecified depression. PLAN: 1. Unspecified depression, s/p suicide attempt. To be managed by psychiatry team. 2. Iron deficiency anemia. Denies heavy bleeding with menses. H/H stable, no s/s of acute bleeding. C/w ferrous sulfate BID, vitamin C daily, colace BID. Miralax PRN. 3. Nondisplaced fracture head of second metatarsal on the left foot. C/w specific instructions per ortho. Heel WB in post-op shoe. Transition to a full on short walking boot when able. Started on Vit D 2000 U Qdaily for 2 months. F/u with orthopedic surgery in clinic in 1 week from 04/21/20. Pain control PRN. 4. Right first rib fx 2/ to trauma. Stable. Tylenol PRN. 5. Recent small R-side pneumothorax. Resolved. DISPOSITION: At this time, this patient's medical condition is stable and we will sign off. If we are needed again please do not hesitate to call. Thank you. Vital Signs Vital Signs Date Time Temp Pulse Resp B/P (MAP) Pulse Ox O2 Delivery O2 Flow Rate FiO2 04/22/20 06:00 97.6 54 14 122/68 (86) 100 Room Air Home Medications Scheduled Acetaminophen (Acetaminophen) 325 Mg Tablet, 650 MG PO Q4H Ascorbic Acid (Vitamin C) 500 Mg Tablet, 500 MG PO BID Ferrous Sulfate (Ferrous Sulfate) 325 Mg Tablet, 325 MG PO BID Folic Acid (Folic Acid) 1 Mg Tablet, 1 MG PO DAILY Ibuprofen (Ibuprofen) 600 Mg Tablet, 600 MG PO Q8H Scheduled PRN Aluminum/Magnesium/Simeth (Mag-Al Plus Suspension) 30 Ml Oral.susp, 30 ML PO DAILY PRN for DYSPEPSIA Magnesium Hydroxide (Milk of Magnesia) 400 Mg/5 Ml Oral.susp, 30 ML PO DAILY PRN for CONSTIPATION Allergies Coded Allergies: No Known Allergies (Unverified , 04/18/20) A-FIB/CHADSVASC A-FIB History Current/History of A-Fib/PAF?: No Current PO Anticoag Therapy: No Age/Risk Factor Scoring CHADSVASC: CHADSVASC Response (Comments) Value Age Risk Factor Age < 65 years old 0 Gender Risk Factor Female 1 Hx of CHF No 0 Hx of HTN No 0 Hx of Stroke/TIA/or VTE No 0 Hx of Diabetes No 0 Hx of Vascular Disease No 0 Total 1 Treatment Treatment ordered: NONE (none) Kandi Solomon MD Apr 22, 2020 14:30
[2020-04-22] MEDS: VITAMIN D 1,000 INTERNATIONAL UNITS TABLET PO SCH (15:03)
[2020-04-22] MEDS: ASCORBIC ACID 500 MG TAB PO SCH (16:27)
[2020-04-22 17:21] VITALS: BP 121/59
[2020-04-22] MEDS: DOCUSATE SODIUM 100 MG CAP PO SCH (21:14)
[2020-04-22] MEDS: FERROUS SULFATE 325MG TAB PO SCH (21:14)
[2020-04-23 06:41] VITALS: BP 118/77
[2020-04-23] MEDS: VITAMIN D 1,000 INTERNATIONAL UNITS TABLET PO SCH (08:51)
[2020-04-23] MEDS: ASCORBIC ACID 500 MG TAB PO SCH (08:51)
[2020-04-23] MEDS: DOCUSATE SODIUM 100 MG CAP PO SCH (08:52)
[2020-04-23] MEDS: FERROUS SULFATE 325MG TAB PO SCH (08:52)
[2020-04-23] MEDS ORDERED: DISU250T PO (10:26)
--- NOTE | 2020-04-23 10:28 | MHDSPDOC ---
[facility] Discharge Summary Discharge Summary DATE OF ADMISSION: Apr 22, 2020 at 02:23 DATE OF DISCHARGE:Apr 23, 2020 at 13:13 DISCHARGE DIAGNOSES: See Problem list below REASON FOR ADMISSION: 25-year-old woman admitted after becoming drunk and arguing with her boyfriend falling out of a window CONSULTANTS INVOLVED:[ None (basic hospitalist screening)] TREATMENT AND PROGRESS ON THE UNIT : Medication changes: discussed medicines, patient declined medicines after i ntensive discussion of different options Behavior on unit: friendly, medical Treatment attendance: attended fairly Notable issues on presentation: no notable problems State on discharge: [stable] DISCHARGE ASSESSMENT: The patient a 25 year old woman, with likely adjustment reaction combined with significant alcohol intoxication, leading to a unfortunate fall, presented to [facility], where they observed for 48 hours with no signs or symptoms consistent with major depression and being unable to convince patient to stay voluntarily and make case for further involuntary extension is allowed to return with appropriate treatment for her alcohol use. Legal status considerations: The patient at the time of discharge did not meet criteria for involuntary admission/extension due to having a [normal] mental status exam, [fair] insight into the situation, They are engaged in the discharge process, as well as being friendly and amenable in behavioral control and havent been engaging in any observed concerning behavior or ideation recently. They decline voluntary extension/admission at this time and must be discharged in good lonny, as Im unable to make a case for holding the patient against their will. They may have historical risk factors of admissions and other interactions with psychiatry however, those are not modifiable from a clinical perspective. The patient will need to be discharged in good lonny. MENTAL STATUS EXAMINATION ON DISCHARGE: [General: Well dressed with good hygiene Speech: Spontaneous and fluid Thought processes: Linear and logical Thought content: Future orientated Abstract reasoning, and computation: Intact Description of associations: Intact Description of abnormal or psychotic thoughts:Denies any suicidal or homicidal ideation. Denies any auditory or visual hallucinations. Does not appear to be responding to internal stimuli. Does not appear to be endorsing any bizarre or paranoid ideation. Judgment: fair Insight: fair Orientation: Alert and orientated 3 Recent and remote memory: Intact Attention span and concentration: Intact Fund of knowledge: Adequate Mood: "okay" Affect: Euthymic with a full range] PLAN/FOLLOWUP ARRANGEMENTS: Follow up appointments made (PCP and MH in 5 days of D/C date) and safety plan completed. Safety Planning aspects completed prior to discharge [RN reviewed crisis hotline information and other aspects to empower patient to access care in interim before next appointment.] Alcohol treatment provided in order to reduce risk of further intoxicated falls The amount of time spent in the coordination of care for this patient was approximately 30 minutes. Vital Signs/I&Os Vital Signs Date Time Temp Pulse Resp B/P (MAP) Pulse Ox O2 Delivery O2 Flow Rate FiO2 04/23/20 06:41 97.8 48 16 118/77 (91) 100 Room Air Medications Scheduled Acetaminophen (Acetaminophen) 325 Mg Tablet, 650 MG PO Q4H, #30 Ascorbic Acid (Vitamin C) 500 Mg Tablet, 500 MG PO BID, #30 Disulfiram (Disulfiram) 250 Mg Tablet, 1 TAB PO DAILY for alcohol for 30 Days, #30 Ferrous Sulfate (Ferrous Sulfate) 325 Mg Tablet, 325 MG PO BID, #60 Folic Acid (Folic Acid) 1 Mg Tablet, 1 MG PO DAILY, #30 Ibuprofen (Ibuprofen) 600 Mg Tablet, 600 MG PO Q8H, #30 Scheduled PRN Aluminum/Magnesium/Simeth (Mag-Al Plus Suspension) 30 Ml Oral.susp, 30 ML PO DAILY PRN for DYSPEPSIA, #30 Magnesium Hydroxide (Milk of Magnesia) 400 Mg/5 Ml Oral.susp, 30 ML PO DAILY PRN for CONSTIPATION, #30 Allergies Coded Allergies: No Known Allergies (Unverified , 04/18/20) Problems (1) Adjustment reaction, depressive, brief Status: Resolved (2) Alcohol abuse Status: Chronic Plan / VTE VTE Prophylaxis Ordered?: No AKANKSHA TENORIO DO Apr 23, 2020 10:28
== END 2020-04-23 13:13 | disposition home or self-care (01) | DRG 881 ==
LOC: M PSY 04-22 02:23
PROVIDERS: ADMIT Psychiatry & Neurology Addiction Medicine; ATTEND Psychiatry & Neurology Addiction Medicine
DX: F43.21 Adjustment disorder with depressed mood (principal); Z79.899 Other long term (current) drug therapy; F10.10 Alcohol abuse, uncomplicated; D50.9 Iron deficiency anemia, unspecified